=== PATIENT | male | born 1970 | race Caucasian/White ===

== ENCOUNTER 2022-08-01 06:58 | Emergency (ER) | payer BC ==
[2022-08-01 07:44] LABS: BASOPHILS ABSOLUTE AUTO 0.02 K/mm3 (0.01-0.08); BASOPHILS PERCENT AUTO 0.1 % (0.1-1.2); EOSINOPHILS ABSOLUTE AUTO 0.02 K/mm3 (0.04-0.54); EOSINOPHILS PERCENT AUTO 0.1 (0.8-7.0); HEMATOCRIT 45.6 % (40.1-51.0); HEMOGLOBIN 15.3 gm/dl (13.7-17.5); IMMATURE GRAN ABSOLUTE AUTO 0.05 K/mm3 (0.00-0.10); IMMATURE GRAN PERCENT AUTO 0.3 % (<=1.0); LYMPHOCYTES ABSOLUTE AUTO 1.28 K/mm3 (1.32-3.57); LYMPHOCYTES PERCENT AUTO 8.1 % (21.8-53.1); MEAN CORPUSCULAR HEMOGLOBIN 28.7 pg (25.7-32.2); MEAN CORPUSCULAR HGB CONC 33.6 g/dl (32.2-35.5); MEAN CORPUSCULAR VOLUME 85.6 fl (79.0-92.2); MEAN PLATELET VOLUME 9.8 fl (9.4-12.3); MONOCYTES ABSOLUTE AUTO 0.84 K/mm3 (0.30-0.82); MONOCYTES PERCENT AUTO 5.3 % (5.3-12.2); NEUTROPHILS ABSOLUTE AUTO 13.59 K/mm3 (1.78-5.38); NEUTROPHILS PERCENT AUTO 86.1 % (34.0-67.9); PLATELET COUNT,PLT 294 K/mm3 (163-337); RED BLOOD CELL COUNT 5.33 M/mm3 (4.63-6.08)
[2022-08-01] MEDS ORDERED: Alum Hydrox/Mag Hydrox/Simeth 30 ML, Lidocaine 2% 15 ML PO ONE ×2 (08:24)
[2022-08-01] MEDS ORDERED: Sodium Chloride 0.9% 1,000 ML IV ONE (08:24)
[2022-08-01] MEDS ORDERED: Lidocaine 2% Viscous Solution 15 ML UD PO ONE (08:25)
[2022-08-01] MEDS ORDERED: Pantoprazole 40 MG Vial IVPUSH ONE (08:27)
[2022-08-01 08:31] LABS: ALBUMIN 3.8 g/dl (3.4-5.0); ANION GAP 16.6 (5-15); BILIRUBIN TOTAL 0.8 mg/dL (0.2-1.0); BUN/CREATININE RATIO 13.1 (14-18); CALCIUM 9.5 mg/dL (8.5-10.1); CREATININE 1.3 mg/dL (0.7-1.3); EST CRCL DRUG DOSING (CG) 63.58 mL/min; POTASSIUM,K 3.6 mEq/L (3.5-5.1); PROTEIN TOTAL,TP 7.6 g/dl (6.4-8.2)
[2022-08-01 08:38] LABS: AMYLASE 41 U/L (25-115); LIPASE 140 U/L (73-393)
[2022-08-01 10:34] LABS: APPEARANCE,URINE CLEAR (Clear); BILIRUBIN,URINE NEGATIVE (Negative); COLOR,URINE YELLOW (Yellow); GLUCOSE,URINE NEGATIVE (Negative); KETONES,URINE 1+ (Negative); LEUKOCYTE ESTERASE,URINE NEGATIVE (Negative); NITRITE,URINE NEGATIVE (Negative); OCCULT BLOOD,URINE NEGATIVE (Negative); PROTEIN,URINE NEGATIVE (Negative); UROBILINOGEN,URINE 0.2 (0.2-1.0)
[2022-08-01] MEDS ORDERED: cefTRIAXone 1 GM in Sodium Chloride 0.9% 100 ML IV ONE (11:45)
== END 2022-08-01 13:00 | disposition home or self-care (01) ==
LOC: JD.ED 06:58
DX: K80.50 Calculus of bile duct without cholangitis or cholecystitis without obstruction (principal); Z88.2 Allergy status to sulfonamides
CPT/HCPCS: 36415; 71045; 74176; 80053; 81003; 82150; 83690; 84484; 85025; 93005; 96361; 96365; 96375; 99284; A9270; C9113; J0696; J3490; J7030

== ENCOUNTER 2022-08-04 06:48 | Day surgery (SDC) | payer BC ==
[2022-08-04] MEDS ORDERED: Sodium Chloride 0.9% 10 ML Syringe FLUSH PRN (07:13)
[2022-08-04] MEDS ORDERED: Ondansetron 4 MG/2 ML SDV IVPUSH ONE (07:13)
[2022-08-04] MEDS ORDERED: Famotidine 20 MG/2 ML SDV IVPUSH ONE (07:14)
[2022-08-04] MEDS ORDERED: Sodium Chloride 0.9% 1,000 ML IV SCH (07:15)
[2022-08-04 08:21] LABS: BASOPHILS ABSOLUTE AUTO 0.02 K/mm3 (0.01-0.08); BASOPHILS PERCENT AUTO 0.1 % (0.1-1.2); EOSINOPHILS ABSOLUTE AUTO 0.01 K/mm3 (0.04-0.54); EOSINOPHILS PERCENT AUTO 0.1 (0.8-7.0); HEMATOCRIT 41.3 % (40.1-51.0); HEMOGLOBIN 13.7 gm/dl (13.7-17.5); IMMATURE GRAN ABSOLUTE AUTO 0.11 K/mm3 (0.00-0.10); IMMATURE GRAN PERCENT AUTO 0.7 % (<=1.0); LYMPHOCYTES ABSOLUTE AUTO 0.63 K/mm3 (1.32-3.57); LYMPHOCYTES PERCENT AUTO 3.8 % (21.8-53.1); MEAN CORPUSCULAR HEMOGLOBIN 28.5 pg (25.7-32.2); MEAN CORPUSCULAR HGB CONC 33.2 g/dl (32.2-35.5); MEAN PLATELET VOLUME 10.1 fl (9.4-12.3); MONOCYTES ABSOLUTE AUTO 1.43 K/mm3 (0.30-0.82); MONOCYTES PERCENT AUTO 8.7 % (5.3-12.2); NEUTROPHILS ABSOLUTE AUTO 14.17 K/mm3 (1.78-5.38); NEUTROPHILS PERCENT AUTO 86.6 % (34.0-67.9); PLATELET COUNT,PLT 251 K/mm3 (163-337); WHITE BLOOD CELL COUNT,WBC 16.37 K/mm3 (4.23-9.07)
[2022-08-04 08:48] LABS: A/G RATIO 0.5 (1-2); ALBUMIN 2.5 g/dl (3.4-5.0); ANION GAP 11.4 (5-15); BUN/CREATININE RATIO 15.7 (14-18); CALCIUM 8.9 mg/dL (8.5-10.1); CREATININE 1.4 mg/dL (0.7-1.3); EST CRCL DRUG DOSING (CG) 59.04 mL/min; POTASSIUM,K 3.4 mEq/L (3.5-5.1); PROTEIN TOTAL,TP 7.2 g/dl (6.4-8.2)
[2022-08-04 08:59] LABS: APPEARANCE,URINE CLEAR (Clear); BILIRUBIN,URINE NEGATIVE (Negative); COLOR,URINE YELLOW (Yellow); GLUCOSE,URINE NEGATIVE (Negative); KETONES,URINE 1+ (Negative); LEUKOCYTE ESTERASE,URINE NEGATIVE (Negative); NITRITE,URINE NEGATIVE (Negative); OCCULT BLOOD,URINE 1+ (Negative); PROTEIN,URINE 3+ (Negative); UROBILINOGEN,URINE 0.2 (0.2-1.0)
[2022-08-04 09:10] LABS: BACTERIA,URINE FEW /hpf (FEW); EPITHELIAL CELLS,URINE 0-5 /hpf (0-5); HYALINE CASTS,URINE 0-5 /lpf (0-5); MUCUS,URINE MODERATE /hpf (FEW); WBC,URINE 0-5 /hpf (0-5)
[2022-08-04] MEDS ORDERED: cefTRIAXone 2 GM in Sodium Chloride 0.9% 100 ML IV ONE (10:07)
[2022-08-04] MEDS ORDERED: diphenhydrAMINE 50 MG/ML SDV IVPUSH ONE (10:21)
[2022-08-04] MEDS ORDERED: Lactated Ringers 1,000 ML IV SCH (12:15)
[2022-08-04] MEDS ORDERED: Bupivacaine 0.5%/EPINEPHrine 1:200,000 50 ML MDV ONE (13:58)
[2022-08-04] MEDS ORDERED: Lidocaine 1% 30 ML SDV ONE (13:58)
[2022-08-04] MEDS ORDERED: fentaNYL 250 MCG/5 ML SDV ONE (14:01)
[2022-08-04] MEDS ORDERED: Propofol 200 MG/20 ML SDV ONE (14:01)
[2022-08-04] MEDS ORDERED: Midazolam 1 MG/ML 2 ML SDV ONE (14:01)
[2022-08-04] MEDS ORDERED: Lidocaine 1% 5 ML VIAL ONE (14:03)
[2022-08-04] MEDS ORDERED: Rocuronium 50 MG/5 ML Vial ONE ×2 (14:03→15:12)
[2022-08-04] MEDS ORDERED: Lactated Ringers 1,000 ML IV ONE (14:30)
[2022-08-04] MEDS ORDERED: Dexamethasone 4 MG/ML 5 ML MDV ONE (14:38)
[2022-08-04] MEDS ORDERED: Ondansetron 4 MG/2 ML SDV ONE (14:38)
[2022-08-04] MEDS ORDERED: EPINEPHrine 1 MG/ML SDV ONE (14:45)
[2022-08-04] MEDS ORDERED: ceFAZolin 2 GM Vial ONE (14:50)
[2022-08-04] MEDS ORDERED: Ketamine 500 mg/10 ML MDV ONE (14:57)
[2022-08-04] MEDS ORDERED: HYDROmorphone 0.5 MG/0.5 ML Syringe ONE ×2 (15:08→15:43)
[2022-08-04] MEDS ORDERED: Neostigmine Methylsulfate 10 MG/10 ML MDV ONE (15:51)
[2022-08-04] MEDS ORDERED: Ketorolac 15 MG/ML SDV ONE (16:05)
[2022-08-04] MEDS ORDERED: Acetaminophen/oxyCODONE 325-5 MG Tab PO PRN (17:16)
== END 2022-08-04 23:41 | disposition home or self-care (01) ==
LOC: JD.ED 06:48 → JD.SDS 10:57 → JD.OB 19:34 → JD.SDS 23:41
PROVIDERS: ATTEND Surgery
DX: K80.00 Calculus of gallbladder with acute cholecystitis without obstruction (principal); K82.A1 Gangrene of gallbladder in cholecystitis; Z88.2 Allergy status to sulfonamides
CPT/HCPCS: 36415; 47562; 76705; 80053; 81001; 83605; 83690; 85025; 87040; 96361; 96365; 96375; 99285; J0171; J0690; J0696; J1100; J1170; J1885; J2250; J2405; J2704; J2710; J3010; J3490; J7030; J7120; 00790